=== PATIENT | male | born 1980 | race Caucasian/White ===

== ENCOUNTER 2022-05-10 23:37 | Emergency (ER) | payer MEDICARE, MEDICAID, SELFPAY ==
[2022-05-10 23:44] VITALS: BP 200/89; PULSE 93; RESP 18; TEMP 36.9; O2SAT 98; BMI 31.4
[2022-05-11 02:59] VITALS: BP 125/76; PULSE 61; RESP 18; TEMP 36.6; O2SAT 100
--- NOTE | 2022-05-11 03:31 | ED.BACK ---
HPI - Back Pain/Injury General Chief Complaint: Back Pain/Injury Stated Complaint: lower back pain, fusions in spine Time Seen by Provider: 05/11/22 03:20 Source: patient Mode of arrival: ambulatory Limitations: no limitations History of Present Illness HPI Narrative: 42-year-old male presents emergency department for evaluation of lower back pain with pain radiating down his right leg. The patient states that he has chronic back pain is had 4 surgeries on his back. He states he has had diskectomies and fusions. He states his 1st surgery was in 2014 is last surgery was in 2018. He states he has chronic lower back pain and takes gabapentin 600 mg 3 times a day. He states that despite taking gabapentin he always has a level of pain which is 6/10. He denies any injury. He states that today his back pain increased to 9/10 and the amount of pain traveling down his right leg also increased. He states he does have weakness to his right lower extremity secondary to nerve injury from the surgeries but he states the weakness is no worse than usual. He denied loss of bowel or bladder control. He denied fever, chills, fatigue. He denies injection drug use. Related Data Previous Rx's Medication Instructions Recorded cyclobenzaprine 10 mg tablet 10 mg PO TID PRN muscle pain or 05/11/22 spasm #20 tabs prednisone 20 mg tablet 60 mg PO DAILY 7 days #21 tabs 05/11/22 Allergies Allergy/AdvReac Type Severity Reaction Status Date / Time aspirin Allergy Swelling Verified 05/10/22 23:53 Review of Systems Review of Systems: Yes all other systems are reviewed and are negative [facility] Past Medical History [facility] Narrative: Past medical history: Chronic back pain. Past surgical history: Diskectomy and fusion to lower back. Social history: He denies tobacco, alcohol and drug use. Social History Social History Advance Directives: No Advance Directives Information Provided: Yes Physical Exam Vital Signs: Vital Signs: Last Vital Signs Temp 97.9 F 05/11/22 02:59 Pulse 66 05/11/22 05:59 Resp 19 05/11/22 05:59 BP 116/71 05/11/22 05:59 Pulse Ox 100 05/11/22 05:59 O2 Del Method 05/11/22 05:59 BMI result Body Mass Index 31.4 Const: General: cooperative and no acute distress Orientation/consciousness: oriented to person and oriented to place Limitations: no limitations HEENT: Head: Yes normal to inspection, Yes normocephalic and Yes atraumatic Ears: external ears normal General nose exam: Normal external nose present Face and sinus: Yes normal facial exam Mouth: Normal oral and palatal mucosa present Throat: Yes posterior oropharynx normal Eyes: General: appearance normal, both eyes and all related structures Pupils: Equal, round and reactive pupils present Neck: Neck: Yes normal visual inspection, Yes no lymphadenopathy, Yes trachea midline and Yes supple Chest: Chest palpation & inspection: normal inspection of the chest and normal palpation of entire chest wall Resp: Effort & Inspection: normal respiratory effort and able to speak in complete sentences Auscultation: clear to auscultation bilaterally Cardio: Rate: regular rate Rhythm: regular rhythm Heart sounds: S1 normal heart sound present, S2 normal heart sound present and no murmurs GI: Inspection: Yes normal to inspection Palpation (GI): Soft to palpation, nontender and no guarding Auscultation: normal bowel sounds Back/Spine/Pelvis: Other: Patient does have scar in his lower back consistent with his previous surgeries, there is no tenderness palpation of his vertebrae or over his paraspinal muscles bilaterally. He does have a positive right straight leg raise but a negative left straight leg raise. He is able to hold both extremities up against gravity. Skin: General skin exam: no rashes or lesions noted Neuro: General: oriented to person and oriented to place Cranial nerves: Yes CN's II-XII intact bilaterally and Yes Equal, round and reactive pupils present Cognition (Neuro): normal cognition Extrem: General: Yes normal to inspection Psych: Appearance: grossly normal Speech and movement: Normal speech and movement present Affect: normal affect Attitude: cooperative Medications Administered Discontinued Medications Generic Name Dose Route Start Last Admin Trade Name Freq PRN Reason Stop Dose Admin Cyclobenzaprine HCl 10 mg 05/11/22 03:30 05/11/22 04:04 Cyclobenzaprine Hcl 10 Mg Tablet PO 05/11/22 03:31 10 mg ONCE ONE Administration Hydromorphone HCl 1 mg 05/11/22 03:30 05/11/22 04:10 Hydromorphone Hcl 1 Mg/Ml Syringe IVPUSH 05/11/22 03:31 1 mg ONCE STA Administration Protocol Prednisone 60 mg 05/11/22 03:30 05/11/22 04:04 Prednisone 20 Mg Tablet PO 05/11/22 03:31 60 mg ONCE ONE Administration Medical Decision Making Medical Decision Making MDM Narrative: 42-year-old male patient with history of chronic back pain with for surgeries in the past (diskectomy and spinal fusions) who presents emergency department with 1 day of lower back pain with pain radiating down his right leg. Patient's vital signs were normal. Patient had no tenderness palpation over his vertebrae or wrist paraspinal muscles, he did have a positive right straight leg raise but a negative left straight leg raise. The patient's presentation is consistent with a flare-up of his chronic back pain. Patient will be treated with Dilaudid 1 mg IV, Flexeril 10 mg orally and prednisone 60 mg orally. The patient states that his pain improved that is now at his baseline 6/10 pain. He does not want a 2nd dose of Dilaudid. He was given prescription for Flexeril 10 mg 3 times a day as needed for pain and spasm and prednisone 60 mg once a day for 1 week. He was advised to also take Tylenol for pain. He was given printed and verbal instructions and discharged home. Discharge Plan Discharge Clinical Impression: Acute left lumbar radiculopathy Chronic lumbar pain Qualifiers: Back pain laterality: right Patient Disposition: Home, Self-Care Instructions: Lumbar Radiculopathy (ED) Additional Instructions: Apply ice for 15 minutes to her lower back 4 to 6 times a day to help reduce the swelling and pain in your lower back. Take Tylenol (acetaminophen) 500 mg pills, 2 pills every 6 hours as needed for pain. Take prednisone 20 mg pills, 3 pills once a day for 5 days. While you are taking prednisone, do not take any NSAIDs (Motrin, Advil, ibuprofen, Aleve, naproxen). Take Flexeril (cyclobenzaprine) 10 mg pills, 1 pill every 6-8 hours as needed for pain or spasm. This medication will make you sleepy. Do not drive or work while taking this medication. Follow-up with your doctor in 2 days. Please return to the emergency department if your symptoms get worse or if you develop any symptoms that are concerning to you. Prescriptions: New cyclobenzaprine 10 mg tablet 10 mg PO TID PRN (Reason: muscle pain or spasm) Qty: 20 0RF prednisone 20 mg tablet 60 mg PO DAILY 7 Days Qty: 21 0RF
[2022-05-11] MEDS: Cyclobenzaprine HCl 10 MG TABLET PO (04:04)
[2022-05-11] MEDS: predniSONE 20 MG TABLET 60 MG PO (04:04)
[2022-05-11 04:10] VITALS: RESP 16
[2022-05-11] MEDS: HYDROmorphone HCl 1 MG/ML SYRINGE IVPUSH (04:10)
[2022-05-11 05:59] VITALS: BP 116/71; PULSE 66; RESP 19; O2SAT 100
== END 2022-05-11 06:36 | disposition home or self-care (01) ==
PROVIDERS: Emergency Provider Emergency Medicine Emergency Medical Services; PCP Internal Medicine
DX: M54.16 Radiculopathy, lumbar region (principal); G89.29 Other chronic pain; M54.50 Low back pain, unspecified
CPT/HCPCS: 96374; 99284; J1170

== ENCOUNTER 2023-03-24 17:36 | Emergency (ER) | payer MEDICARE, MEDICAID, SELFPAY ==
[2023-03-24 17:49] VITALS: BP 135/100; PULSE 103; RESP 18; TEMP 37.1; O2SAT 93; BMI 33.7
--- NOTE | 2023-03-24 17:49 | ED.GENADULT ---
HPI - General Adult General Chief complaint: General Medical Stated complaint: high blood sugar,headache,blurry vision Time Seen by Provider: 03/24/23 20:41 Related Data Previous Rx's Medication Instructions Recorded cyclobenzaprine 10 mg tablet 10 mg PO TID PRN muscle pain or 05/11/22 spasm #20 tabs prednisone 20 mg tablet 60 mg (3 x 20 mg) PO DAILY 7 days 05/11/22 #21 tabs insulin glargine 100 unit/mL (3 60 unit (0.6 mL) subcut QPM #15 mL 03/24/23 mL) subcutaneous pen (Lantus Solostar U-100 Insulin) Allergies Allergy/AdvReac Type Severity Reaction Status Date / Time aspirin Allergy Swelling Verified 03/24/23 17:51 [facility] Social History Social History Alcohol intake: never Smoked in Last 30 Days: No Use of substances other than those prescribed or required for medical reasons: No Advance Directives: No Advance Directives Information Provided: No Physical Exam ED Vital Signs: Vital Signs - 24 hr 03/24/23 17:49 03/24/23 20:34 Temperature 98.8 F 98.1 F Pulse Rate 103 H 84 Respiratory Rate 18 16 Blood Pressure 135/100 H 143/90 H Pulse Oximetry 93 97 Oxygen Delivery Method Room Air Room Air BMI result Body Mass Index 33.7 Course Course Course Narrative: RME performed by Ramonita Watkins PA-C. Patient is a 42 year old assigned male at presenting to the emergency department with an elevated blood sugar. Patient states that he is newly diagnosed diabetic and due to insurance, he has not been able to get insulin or other things for his diabetes care. Detailed physical exam and review of systems are deferred to the product technology scientist. Labs ordered. Patient placed back in the waiting room pending room availability and results. Medical Decision Making Lab Data 03/24/23 18:19 03/24/23 18:19 Labs: Lab Results 03/24/23 Range/Units 18:19 WBC 7.8 (4.8-10.8) X10*3/uL RBC 4.88 (4.60-5.80) X10*6/uL Hgb 14.6 (14.0-18.0) g/dl Hct 40.1 L (42.0-52.0) % MCV 82.2 (80.0-98.0) fL MCH 29.9 (27.0-33.0) pg MCHC 36.4 H (31.0-36.0) g/dl RDW 12.6 (11.0-16.0) % Plt Count 200 (160-400) X10*3/uL MPV 10.7 (9.4-12.4) fL Immature Gran % (Auto) 0.4 (0.0-0.4) % Neut % (Auto) 50.0 (45-73) % Lymph % (Auto) 42.8 H (20-40) % [place] % (Auto) 4.7 (2-11) % Eos % (Auto) 1.7 (0-4) % Baso % (Auto) 0.4 (0-2) % Lymph # (Auto) 3.4 (1.2-4.9) X10*3/uL [place] # (Auto) 0.4 (0.1-1.2) X10*3/uL Eos # (Auto) 0.1 (0.0-0.4) X10*3/uL Baso # (Auto) 0.0 (0.0-0.2) X10*3/uL Abs Immat Gran (auto) 0.03 (0.00-0.03) X10*3/uL Absolute Neuts (auto) 3.9 (2.0-8.3) x10*3/uL Absolute Nucleated RBC 0.000 (0.0-0.012) X10*3/uL Nucleated RBC % (auto) 0.0 (0.0-0.2) /100WBC Smear Tech's Comments VERIFIED Sodium 137 (135-145) mmol/L Potassium 3.8 (3.3-5.1) mmol/L Chloride 105 (96-108) mmol/L Carbon Dioxide 21 L (22-29) mmol/L Anion Gap 15 (12-20) BUN 27 H (9-16) mg/dL Creatinine 0.83 (0.5-1.4) mg/dL Estim Creat Clear Calc 144.6 Estimated GFR > 60 Random Glucose 198 H (60-115) mg/dL Calcium 9.4 (8.4-10.2) mg/dL Magnesium 1.6 (1.6-2.6) mg/dL Total Bilirubin 0.4 (0.0-1.0) mg/dL AST 29 (5-37) U/L ALT 69 H (0-40) U/L Alkaline Phosphatase 134 H (39-117) U/L Troponin I High Sens < 2.7 (<3.5-35.0) ng/L Total Protein 7.6 (6.5-8.0) g/dL Albumin 4.3 (3.5-5.0) g/dL Beta-Hydroxybutyrate 0.28 H (0.02-0.27) mmol/L Discharge Plan Discharge Clinical Impression: New onset type 2 diabetes mellitus Patient Disposition: Home, Self-Care Additional Instructions: Your blood work today revealed that your electrolytes were normal, your kidney function was normal and your glucose was only 198. I am going to prescribe Lantus 60 units at night. Please follow your tray line supervisor instructions and started at 10 units increased by increase the dose every 4 days instructed Use your good Rx coupon to see if you can get this medication filled at a local pharmacy. Stay on a low-carbohydrate diet and make sure you drink plenty of fluid to keep up with your fluid loss from your high sugar. Follow-up with your doctor in 2 days. Please return to the emergency department if your symptoms get worse or if you develop any symptoms that are concerning to you. Prescriptions: New insulin glargine [Lantus Solostar U-100 Insulin] 100 unit/mL (3 mL) insulin pen 60 unit subcut QPM Qty: 15 0RF No Action cyclobenzaprine 10 mg tablet 10 mg PO TID PRN (Reason: muscle pain or spasm) Qty: 20 0RF prednisone 20 mg tablet 60 mg PO DAILY 7 Days Qty: 21 0RF
--- NOTE | 2023-03-24 17:50 | ECG_ITS ---
Test Reason : htn Blood Pressure : / mmHG Vent. Rate : 086 BPM Atrial Rate : 086 BPM P-R Int : 148 ms QRS Dur : 096 ms QT Int : 358 ms P-R-T Axes : 051 -18 036 degrees QTc Int : 428 ms Normal sinus rhythm Normal ECG No previous ECGs available Referred By: Ramonita Watkins Electronically Signed By:DRAKE CHAUDHARY MD
[2023-03-24 18:38] LABS: Alanine Aminotransferase 69 U/L (0-40); Albumin Level 4.3 g/dL (3.5-5.0); Alkaline Phosphatase 134 U/L (39-117); Anion Gap 15 (12-20); Aspartate Amino Transferase 29 U/L (5-37); Beta-Hydroxybutyrate 0.28 mmol/L (0.02-0.27); Bilirubin Total 0.4 mg/dL (0.0-1.0); Blood Urea Nitrogen 27 mg/dL (9-16); Calcium 9.4 mg/dL (8.4-10.2); Carbon Dioxide 21 mmol/L (22-29); Chloride 105 mmol/L (96-108); Creatinine Clr Calc Pharmacy 144.6; Estimated Glomerular Filt Rate > 60; Glucose Random 198 mg/dL (60-115); Magnesium 1.6 mg/dL (1.6-2.6); Potassium 3.8 mmol/L (3.3-5.1); Sodium 137 mmol/L (135-145); Total Protein 7.6 g/dL (6.5-8.0)
[2023-03-24 18:43] LABS: Basophils Percent Auto 0.4 % (0-2); Eosinophils Absolute Auto 0.1 X10*3/uL (0.0-0.4); Eosinophils Percent Auto 1.7 % (0-4); Hematocrit 40.1 % (42.0-52.0); Hemoglobin 14.6 g/dl (14.0-18.0); Imm Gran Abs Auto 0.03 X10*3/uL (0.00-0.03); Imm Gran Pct Auto 0.4 % (0.0-0.4); Lymphocytes Absolute Auto 3.4 X10*3/uL (1.2-4.9); Lymphocytes Percent Auto 42.8 % (20-40); MANUAL DIFF FLAG SCAN; Mean Corpuscular HGB Conc 36.4 g/dl (31.0-36.0); Mean Corpuscular Hemoglobin 29.9 pg (27.0-33.0); Mean Corpuscular Volume 82.2 fL (80.0-98.0); Mean Platelet Volume 10.7 fL (9.4-12.4); Monocytes Absolute Auto 0.4 X10*3/uL (0.1-1.2); Monocytes Percent Auto 4.7 % (2-11); Neutrophils Absolute Auto 3.9 x10*3/uL (2.0-8.3); PLT CLUMP 1; Red Blood Count 4.88 X10*6/uL (4.60-5.80); Red Cell Distribution Width 12.6 % (11.0-16.0); SCAN SMEAR FLAG 1
[2023-03-24 18:44] LABS: Platelet Count 200 X10*3/uL (160-400); White Blood Count 7.8 X10*3/uL (4.8-10.8)
[2023-03-24 18:46] LABS: Troponin-I High Sensitivity < 2.7 ng/L (<3.5-35.0)
[2023-03-24 18:59] LABS: SLIDE REVIEW VERIFIED
[2023-03-24 20:34] VITALS: BP 143/90; PULSE 84; RESP 16; TEMP 36.7; O2SAT 97
--- NOTE | 2023-03-25 22:05 | ED_ITS ---
HPI - General Adult General Chief complaint: General Medical Stated complaint: high blood sugar,headache,blurry vision Time Seen by Provider: 03/24/23 20:41 Source: patient Mode of arrival: ambulatory Limitations: no limitations History of Present Illness HPI narrative: 42-year-old male who presents emergency department for evaluation of new onset diabetes and high glucose patient states for the past 2 weeks he has been having diabetes symptoms which include blurred vision, increased thirst increased urinary frequency. States he is lost 7 lb over the last 2 weeks. He states he has been feeling very fatigued. He has been using his mother's glucometer and his sugars have been running in the 300-500 range. Patient was seen by Endocrinology for his diabetes and he was started on metformin 100 mg twice a day. He states that since starting this medication he has had nausea, vomiting and diarrhea and he can not take the medication. Patient was also prescribed several different forms of insulin which he states is not been covered by his insurance so he has not started these medications. He denied fever, chills, chest pain, shortness of breath, abdominal pain Related Data Previous Rx's Medication Instructions Recorded cyclobenzaprine 10 mg tablet 10 mg PO TID PRN muscle pain or 05/11/22 spasm #20 tabs prednisone 20 mg tablet 60 mg (3 x 20 mg) PO DAILY 7 days 05/11/22 #21 tabs insulin glargine 100 unit/mL (3 60 unit (0.6 mL) subcut QPM #15 mL 03/24/23 mL) subcutaneous pen (Lantus Solostar U-100 Insulin) Allergies Allergy/AdvReac Type Severity Reaction Status Date / Time aspirin Allergy Swelling Verified 03/24/23 17:51 Review of Systems 2 Review of Systems: Yes all other systems are reviewed and are negative [facility] Past Medical History [facility] Narrative: Past medical history: New onset diabetes. Social history: He denies tobacco, alcohol and drug use Social History Social History Alcohol intake: never Smoked in Last 30 Days: No Use of substances other than those prescribed or required for medical reasons: No Advance Directives: No Advance Directives Information Provided: No Physical Exam ED Vital Signs: BMI result Body Mass Index 33.7 Exam: General: Awake, alert in no distress Head: Normocephalic, atraumatic EENT: PERRL, Lids normal, sclera normal, conjunctiva normal, nose normal , ears normal, throat without erythema or exudates Neck: Supple, no adenopathy Lung: breath sounds symmetric, no wheezing, rales or rhonchi Chest: symmetric movement, nontender Heart: regular rate and rhythm, normal S1, S2 no murmurs or rubs Abdomen: soft, non-tender, nondistended, normal bowel sounds Back: no vertebral tenderness, no CVAT Extremities: no deformities, moves all extremities symmetrically Skin: no rashes, no lesion, normal color and warmth Neuro: Awake, alert, oriented, normal speech, cranial nerves intact, moves all extremities symmetrically Psych: Pleasant, cooperative Medical Decision Making Lab Data 03/24/23 18:19 03/24/23 18:19 Labs: Lab Results 03/24/23 Range/Units 18:19 WBC 7.8 (4.8-10.8) X10*3/uL RBC 4.88 (4.60-5.80) X10*6/uL Hgb 14.6 (14.0-18.0) g/dl Hct 40.1 L (42.0-52.0) % MCV 82.2 (80.0-98.0) fL MCH 29.9 (27.0-33.0) pg MCHC 36.4 H (31.0-36.0) g/dl RDW 12.6 (11.0-16.0) % Plt Count 200 (160-400) X10*3/uL MPV 10.7 (9.4-12.4) fL Immature Gran % (Auto) 0.4 (0.0-0.4) % Neut % (Auto) 50.0 (45-73) % Lymph % (Auto) 42.8 H (20-40) % [place] % (Auto) 4.7 (2-11) % Eos % (Auto) 1.7 (0-4) % Baso % (Auto) 0.4 (0-2) % Lymph # (Auto) 3.4 (1.2-4.9) X10*3/uL [place] # (Auto) 0.4 (0.1-1.2) X10*3/uL Eos # (Auto) 0.1 (0.0-0.4) X10*3/uL Baso # (Auto) 0.0 (0.0-0.2) X10*3/uL Abs Immat Gran (auto) 0.03 (0.00-0.03) X10*3/uL Absolute Neuts (auto) 3.9 (2.0-8.3) x10*3/uL Absolute Nucleated RBC 0.000 (0.0-0.012) X10*3/uL Nucleated RBC % (auto) 0.0 (0.0-0.2) /100WBC Smear Tech's Comments VERIFIED Sodium 137 (135-145) mmol/L Potassium 3.8 (3.3-5.1) mmol/L Chloride 105 (96-108) mmol/L Carbon Dioxide 21 L (22-29) mmol/L Anion Gap 15 (12-20) BUN 27 H (9-16) mg/dL Creatinine 0.83 (0.5-1.4) mg/dL Estim Creat Clear Calc 144.6 Estimated GFR > 60 Random Glucose 198 H (60-115) mg/dL Calcium 9.4 (8.4-10.2) mg/dL Magnesium 1.6 (1.6-2.6) mg/dL Total Bilirubin 0.4 (0.0-1.0) mg/dL AST 29 (5-37) U/L ALT 69 H (0-40) U/L Alkaline Phosphatase 134 H (39-117) U/L Troponin I High Sens < 2.7 (<3.5-35.0) ng/L Total Protein 7.6 (6.5-8.0) g/dL Albumin 4.3 (3.5-5.0) g/dL Beta-Hydroxybutyrate 0.28 H (0.02-0.27) mmol/L Discharge Plan Discharge Clinical Impression: New onset type 2 diabetes mellitus Patient Disposition: Home, Self-Care Additional Instructions: Your blood work today revealed that your electrolytes were normal, your kidney function was normal and your glucose was only 198. I am going to prescribe Lantus 60 units at night. Please follow your cycle analyst instructions and started at 10 units increased by increase the dose every 4 days instructed Use your good Rx coupon to see if you can get this medication filled at a local pharmacy. Stay on a low-carbohydrate diet and make sure you drink plenty of fluid to keep up with your fluid loss from your high sugar. Follow-up with your doctor in 2 days. Please return to the emergency department if your symptoms get worse or if you develop any symptoms that are concerning to you. Prescriptions: New insulin glargine [Lantus Solostar U-100 Insulin] 100 unit/mL (3 mL) insulin pen 60 unit subcut QPM Qty: 15 0RF No Action cyclobenzaprine 10 mg tablet 10 mg PO TID PRN (Reason: muscle pain or spasm) Qty: 20 0RF prednisone 20 mg tablet 60 mg PO DAILY 7 Days Qty: 21 0RF Interventions: ED Discharge Assessment Last Done: 03/24/23 21:22 Discharge Date/Time: 03/24/23 21:24
== END 2023-03-24 21:24 | disposition home or self-care (01) ==
PROVIDERS: Physician Assistant Medical; Emergency Provider Emergency Medicine Emergency Medical Services; PCP Internal Medicine
DX: H53.8 Other visual disturbances (principal); E11.9 Type 2 diabetes mellitus without complications; R51.9 Headache, unspecified; R35.0 Frequency of micturition; I10 Essential (primary) hypertension; Z79.899 Other long term (current) drug therapy
CPT/HCPCS: 36415; 80053; 82010; 83735; 84484; 85025; 93005; 99283; 99284

== ENCOUNTER → 2023-03-24 17:50 | Outpatient (BNV) | payer MEDICARE, MEDICAID, SELFPAY | PROVIDERS: Emergency Provider Emergency Medicine Emergency Medical Services; PCP Internal Medicine; Visit Provider Internal Medicine Cardiovascular Disease | DX: I10 Essential (primary) hypertension (principal) | CPT/HCPCS: 93010 ==